=== PATIENT | female | born 1950 | race Caucasian/White ===

== ENCOUNTER 2023-05-08 14:00 | Outpatient (RCR) | payer MEDICARE, OTHER, SELFPAY | END 2023-06-25 14:20 | disposition home or self-care (01) | LOC: HO.PTCHIC 14:00 | PROVIDERS: PCP Nurse Practitioner Family; Visit Provider Nurse Practitioner Family | DX: S99.912D Unspecified injury of left ankle, subsequent encounter (principal) | CPT/HCPCS: 97110; 97112; 97161 ==